=== PATIENT | female | born 1955 | race Caucasian/White ===

== ENCOUNTER 2017-01-15 21:51 | Inpatient (IN) | payer BC, OTHER ==
--- NOTE | 2017-01-15 22:02 | PDOC ---
History of Present Illness - General History Source: Patient Exam Limitations: No Limitations - History of Present Illness Initial Comments: 01/15/17 22:15 The patient is a 61 year old female, with a significant past medical history of Crohn's Disease, kidney stones, psychiatric problems, and frequent UTIs, who presents to the emergency department with, significant edema of the legs, arms, and chest. The patient was rambling and would get distracted easily when giving her symptoms. She reports to have just been discharged from [facility] where she was admitted for a week. She reports to currently have be in significant pain from her kidney stones and UTI. She reports to have taken lasix which helped at the time but, now her legs are once again swollen. She reports to have gotten 4 kidney stones within the past 15 months. She reports recent dysuria, frequency, and urgency. She denies recent fevers, chills, headache or dizziness. She denies recent nausea, vomit, diarrhea or constipation. She denies recent chest pain or shortness of breath. Social history: Former Smoker. Denies EtOH use and recreational drug use. 01/15/17 22:16 <Lauren Garvey - Last Filed: 01/15/17 22:25> <Bipin Tidwell - Last Filed: 01/16/17 00:58> - General Chief Complaint: Edema Stated Complaint: BILAT LEG SWELLING Time Seen by Provider: 01/15/17 22:02 Past History <Lauren Garvey - Last Filed: 01/15/17 22:25> <Bipin Tidwell - Last Filed: 01/16/17 00:58> - Past Medical History Allergies/Adverse Reactions: Allergies Allergy/AdvReac Type Severity Reaction Status Date / Time acetaminophen [From Tylenol] Allergy Verified 01/15/17 22:04 benzocaine [From Exactacain] Allergy Verified 01/15/17 22:05 butamben [From Exactacain] Allergy Verified 01/15/17 22:05 gabapentin Allergy Verified 01/15/17 22:05 heparin Allergy Verified 01/15/17 22:07 ketorolac tromethamine Allergy Verified 01/15/17 22:05 [From Toradol] latex Allergy Verified 01/15/17 22:06 nitrofurantoin Allergy Verified 01/15/17 22:07 [From Macrobid] nitrofurantoin Allergy Verified 01/15/17 22:07 macrocrystalline [From Macrobid] Penicillins Allergy Verified 01/15/17 22:04 prednisone Allergy Verified 01/15/17 22:06 Sulfa (Sulfonamide Allergy Verified 01/15/17 22:05 Antibiotics) tetracaine [From Exactacain] Allergy Verified 01/15/17 22:05 tramadol Allergy Verified 01/15/17 22:04 ANTIHISTAMINES Allergy Uncoded 01/15/17 22:06 IV CONTRAST Allergy Uncoded 01/15/17 22:04 Home Medications: Ambulatory Orders Apixaban [Eliquis] 5 mg PO BID 01/15/17 Review of Systems - Review of Systems Able to Perform ROS?: Yes Comments:: 01/15/17 22:15 GENERAL/CONSTITUTIONAL: No fever or chills. No weakness. HEAD, EYES, EARS, NOSE AND THROAT: No change in vision. No ear pain or discharge. No sore throat. CARDIOVASCULAR: No chest pain or shortness of breath. RESPIRATORY: No cough, wheezing, or hemoptysis. GASTROINTESTINAL: No nausea, vomiting, diarrhea or constipation. GENITOURINARY: +dysuria, frequency, and change in urination. +Flank pain. MUSCULOSKELETAL:+Edema in legs, arms, and chest. No joint swelling or pain. No neck or back pain. SKIN: No rash NEUROLOGIC: No headache, vertigo, loss of consciousness, or change in strength/ sensation. ENDOCRINE: No increased thirst. No abnormal weight change. HEMATOLOGIC/LYMPHATIC: No anemia, easy bleeding, or history of blood clots. ALLERGIC/IMMUNOLOGIC: No hives or skin allergy. All Other Systems: Reviewed and Negative <Lauren Garvey - Last Filed: 01/15/17 22:25> *Physical Exam - Vital Signs Last Vital Signs Temp Pulse Resp BP Pulse Ox 98 F 90 14 118/89 95 01/15/17 21:53 01/15/17 21:53 01/15/17 21:53 01/15/17 21:53 01/15/17 21:53 - Physical Exam Comments: 01/15/17 22:25 GENERAL: Awake, alert, and fully oriented, in no acute distress HEAD: No signs of trauma EYES: PERRLA, EOMI, sclera anicteric, conjunctiva clear ENT: Auricles normal inspection, hearing grossly normal, nares patent, oropharynx clear without exudates. Moist mucosa NECK: Normal ROM, supple, no lymphadenopathy, JVD, or masses LUNGS: Breath sounds equal, clear to auscultation bilaterally. No wheezes, and no crackles HEART: Regular rate and rhythm, normal S1 and S2, no murmurs, rubs or gallops ABDOMEN: Soft, nontender, normoactive bowel sounds. No guarding, no rebound. No masses EXTREMITIES: +Edema bilateral legs. Normal range of motion. No clubbing or cyanosis. No cords, erythema, or tenderness NEUROLOGICAL: Cranial nerves II through XII grossly intact. Normal speech, normal gait SKIN: Warm, Dry, normal turgor, no rashes or lesions noted. <Lauren Garvey - Last Filed: 01/15/17 22:25> ED Treatment Course - LABORATORY CBC & Chemistry Diagram: 01/15/17 22:45 01/15/17 22:45 <Bipin Tidwell - Last Filed: 01/16/17 00:58> *DC/Admit/Observation/Transfer - Attestations Scribe Attestion: 01/15/17 22:15 Documentation prepared by Lauren Garvey, acting as medical assistant float for Bipin Tidwell MD. <Lauren Garvey - Last Filed: 01/15/17 22:25> - Discharge Dispostion Admit: Yes - Attestations Physician Attestion: 01/15/17 22:02 I, Dr. Bipin Tidwell, attest that this document has been prepared under my direction and personally reviewed by me in its entirety. I further attest, that it accurately reflects all work, treatment, procedures and medical decision -making performed by me. <Bipin Tidwell - Last Filed: 01/16/17 00:58> Diagnosis at time of Disposition: Flank pain, Kidney stone UTI (urinary tract infection) Qualifiers: Urinary tract infection type: site unspecified Hematuria presence: with hematuria Qualified Code(s): N39.0 - Urinary tract infection, site not specified ; R31.9 - Hematuria, unspecified; R31.9 - Hematuria, unspecified - Discharge Dispostion Condition at time of disposition: Good
[2017-01-15 22:04] VITALS: TEMP 98
[2017-01-15 22:54] LABS: PH,URINE 5.5 (4.5-8); URINE APPEARANCE Cloudy; URINE BILIRUBIN 1+ (NEGATIVE); URINE GLUCOSE (UA) Negative (NEGATIVE); URINE KETONE Negative (NEGATIVE); URINE NITRITE Negative (NEGATIVE); URINE PROTEIN Trace (NEGATIVE); URINE UROBILINOGEN 0.2 (0.2-1.0)
[2017-01-15 22:55] LABS: URINE BLOOD 3+ (NEGATIVE); URINE COLOR YELLOW; URINE LEUK ESTERASE 1+ (NEGATIVE)
[2017-01-15 23:07] LABS: URINE RBC 20-40 /hpf (0-3)
[2017-01-15 23:08] LABS: URINE BACTERIA MANY /hpf (NEGATIVE); URINE WBC MANY (0-5)
[2017-01-15 23:14] LABS: ALK PHOS 101 U/L (32-92); ANION GAP 10 (8-16); BILIRUBIN,TOTAL 0.5 mg/dl (0.2-1.0); CALCIUM 8.9 mg/dl (8.4-10.2); CO2 26 mmol/L (22-28); CREATININE 0.6 mg/dl (0.6-1.3); GLUCOSE,RANDOM 97 mg/dl (74-106); SGOT/AST 56 U/L (10-42); SGPT/ALT 47 U/L (10-40); TOT PROT 7.2 g/dl (6.4-8.3)
[2017-01-16] MEDS ORDERED: MEROPENEM 1,000 MG in DEXTROSE 5%-WATER - 100 ML IVPB ONE (00:47)
[2017-01-16] MEDS ORDERED: morphine CARPU-JECT 2 MG/1 ML DISP.SYRIN IVPUSH ONE (00:56)
[2017-01-16] MEDS ORDERED: ONDANSETRON 4 MG/2 ML VIAL ONE (00:57)
[2017-01-16] MEDS ORDERED: SODIUM CHLORIDE 1,000 ML IV SCH (01:00)
[2017-01-16] MEDS ORDERED: morphine CARPU-JECT 2 MG/1 ML DISP.SYRIN ONE (01:08)
[2017-01-16 01:29] LABS: BASOPHIL 0.7 % (0-2.0); EOSINOPHIL 2.5 % (0-4.5); MCH 25.5 pg (25.7-33.7); MCHC 32.7 g/dl (32.0-36.0); MEAN CELL VOLUME 77.9 fl (80-96); MEAN PLT VOLUME 9.6 fl (7.5-11.1); NEUTROPHILS 67.4 % (42.8-82.8); PLATELET COUNT 191 K/MM3 (134-434); RDW 22.2 % (11.6-15.6); WHITE BLOOD COUNT 5.5 K/mm3 (4.0-10.0)
[2017-01-16] MEDS ORDERED: morphine SULFATE 4 MG/ML VIAL IVPUSH PRN ×3 (01:52→11:29)
[2017-01-16 01:53] LABS: PROTHROMBIN TIME (PATIENT) 11.3 SEC (9.98-11.88)
[2017-01-16 03:53] LABS: ANISOCYTOSIS 2+; HYPOCHROMIA 1+; MICROCYTOSIS 1+; POIKILOCYTOSIS 1+; POLYCHROMASIA 1+
[2017-01-16 05:45] VITALS: BMI 31.9
[2017-01-16 07:19] VITALS: BP 110/70; PULSE 110
--- NOTE | 2017-01-16 08:52 | PN ---
Progress Note (short form) - Note Progress Note: ID Consult dictated
[2017-01-16] MEDS ORDERED: ONDANSETRON 4 MG/2 ML VIAL IVPB ONE (09:15)
[2017-01-16] MEDS ORDERED: MEROPENEM 500 MG VIAL (RESTRICTED TO ID) IVPB SCH (10:00)
--- NOTE | 2017-01-16 10:52 | HP ---
CHIEF COMPLAINT: Back pain and lower extremity PCP: none HISTORY OF PRESENT ILLNESS: This is a 61 year old female with PMHx of Crohn's disease, kidney stones, frequent UTIs, DVTs and PEs (Dx 2 years ago, on Eliquis), who presented to the ED with edema in her arms, legs, chest, and abdomen. The patient is very combative, she refuses to elaborate on her symptoms and states "I know my health ". She states she was recently at [facility] and signed out AMA because she was not "getting any answers". The patient now reports having pain in her back from kidney stones and her UTI. She easily gets distracted and goes from one symptom to another. She is unable to provide me with further details about her Eliquis and why she has been on it for 2 years, pharmacy information, or who prescribes it to her. She is getting agitated stating "I get it from the hospital". ER course was notable for: (1) BNP 48.68 (2) UA with 1+ leuks, many WBC, many bacteria, 3+ blood (3) Temp 98, pulse 90, BP 118/89, resp 14, O2 95% on RA (4) CTAP with bilateral non-obstructing renal stones. Approximately 7mm fatty density in the right renal upper pole suggestive of an angiomyolipoma. 7.5x6.5mm calcific density/stone Recent Travel: refusing to say PAST MEDICAL HISTORY: as above PAST SURGICAL HISTORY: denies Social History: Smoking: denies Alcohol: denies Drugs: denies Family History: Allergies acetaminophen [From Tylenol] Allergy (Verified 01/15/17 22:04) benzocaine [From Exactacain] Allergy (Verified 01/15/17 22:05) butamben [From Exactacain] Allergy (Verified 01/15/17 22:05) gabapentin Allergy (Verified 01/15/17 22:05) heparin Allergy (Verified 01/15/17 22:07) ketorolac tromethamine [From Toradol] Allergy (Verified 01/15/17 22:05) latex Allergy (Verified 01/15/17 22:06) nitrofurantoin [From Macrobid] Allergy (Verified 01/15/17 22:07) nitrofurantoin macrocrystalline [From Macrobid] Allergy (Verified 01/15/17 22:07 ) Penicillins Allergy (Verified 01/15/17 22:04) prednisone Allergy (Verified 01/15/17 22:06) Sulfa (Sulfonamide Antibiotics) Allergy (Verified 01/15/17 22:05) tetracaine [From Exactacain] Allergy (Verified 01/15/17 22:05) tramadol Allergy (Verified 01/15/17 22:04) ANTIHISTAMINES Allergy (Uncoded 01/15/17 22:06) IV CONTRAST Allergy (Uncoded 01/15/17 22:04) HOME MEDICATIONS: Home Medications Medication Instructions Recorded Apixaban [Eliquis] 5 mg PO BID 01/15/17 REVIEW OF SYSTEMS CONSTITUTIONAL: Absent: fever, chills, diaphoresis, generalized weakness, malaise, loss of appetite, weight change HEENT: Absent: rhinorrhea, nasal congestion, throat pain, throat swelling, difficulty swallowing, mouth swelling, ear pain, eye pain, visual changes CARDIOVASCULAR: Absent: chest pain, syncope, palpitations, irregular heart rate , lightheadedness, peripheral edema RESPIRATORY: Absent: cough, shortness of breath, dyspnea with exertion, orthopnea, wheezing, stridor, hemoptysis GASTROINTESTINAL:Absent: abdominal pain, abdominal distension, nausea, vomiting , diarrhea, constipation, melena, hematochezia GENITOURINARY: Absent: dysuria, frequency, urgency, hesitancy, hematuria, flank pain, genital pain MUSCULOSKELETAL: Absent: myalgia, arthralgia, joint swelling, back pain, neck pain SKIN: Absent: rash, itching, pallor HEMATOLOGIC/IMMUNOLOGIC: Absent: easy bleeding, easy bruising, lymphadenopathy, frequent infections ENDOCRINE:Absent: unexplained weight gain, unexplained weight loss, heat intolerance, cold intolerance NEUROLOGIC: Absent: headache, focal weakness or paresthesias, dizziness, unsteady gait, seizure, mental status changes, bladder or bowel incontinence PSYCHIATRIC: Absent: anxiety, depression, suicidal or homicidal ideation, hallucinations. PHYSICAL EXAMINATION Vital Signs - 24 hr 01/15/17 01/16/17 01/16/17 21:53 02:51 04:55 Temperature 98 F Pulse Rate 90 Pulse Rate [ 84 Left Radial] Respiratory 14 14 Rate Blood Pressure 118/89 Blood Pressure 102/59 [Right Arm] O2 Sat by Pulse 95 94 L 98 Oximetry (%) 01/16/17 07:14 Temperature Pulse Rate 110 H Pulse Rate [ Left Radial] Respiratory 14 Rate Blood Pressure 110/70 Blood Pressure [Right Arm] O2 Sat by Pulse Oximetry (%) GENERAL: Awake, alert, and fully oriented, in no acute distress. LUNGS: Breath sounds equal, clear to auscultation bilaterally. No wheezes, and no crackles. No accessory muscle use. HEART: Regular rate and rhythm, normal S1 and S2 without murmur, rub or gallop. ABDOMEN: Refused abdominal exam MUSCULOSKELETAL: Refused exam UPPER EXTREMITIES: Visible edema, patient refused palpation LOWER EXTREMITIES: Visible edema, patient refused palpation NEUROLOGICAL: Cranial nerves II-XII intact. Normal speech. Gait not observed PSYCHIATRIC: Cooperative. Good eye contact. SKIN: Warm, dry, no rashes or lesions noted, normal capillary refill. Laboratory Results - last 24 hr 01/15/17 01/15/17 01/15/17 22:45 22:45 22:45 WBC Cancelled Corrected WBC (auto) Cancelled RBC Cancelled Hgb Cancelled Hct Cancelled MCV Cancelled MCH Cancelled MCHC Cancelled RDW Cancelled Plt Count Cancelled MPV Cancelled Add Manual Diff Cancelled Neutrophils % Cancelled Lymphocytes % Cancelled Monocytes % Cancelled Eosinophils % Cancelled Basophils % Cancelled Hypochromia Platelet Comment Cancelled Normal RBC Morphology Cancelled Polychromasia Poikilocytosis Anisocytosis Microcytosis PT with INR INR Sodium 138 Potassium 3.9 Chloride 102 Carbon Dioxide 26 Anion Gap 10 BUN 19 H Creatinine 0.6 Creat Clearance w eGFR > 60 Random Glucose 97 Calcium 8.9 Total Bilirubin 0.5 AST 56 H ALT 47 H Alkaline Phosphatase 101 H B-Natriuretic Peptide Total Protein 7.2 Albumin 4.0 Lipase 15 L TSH Cancelled Urine Color Yellow Urine Appearance Cloudy Urine pH 5.5 Ur Specific [place] 1.020 Urine Protein Trace Urine Glucose (UA) Negative Urine Ketones Negative Urine Blood 3+ H Urine Nitrite Negative Urine Bilirubin 1+ H Urine Urobilinogen 0.2 Ur Leukocyte Esterase 1+ H Urine RBC 20-40 Urine WBC Many Ur Epithelial Cells Moderate Urine Bacteria Many 01/16/17 01/16/17 01/16/17 00:22 00:22 00:22 WBC 5.5 Corrected WBC (auto) RBC 4.33 Hgb 11.0 Hct 33.7 MCV 77.9 L MCH 25.5 L MCHC 32.7 RDW 22.2 H Plt Count 191 MPV 9.6 Add Manual Diff Neutrophils % 67.4 Lymphocytes % 21.0 Monocytes % 8.4 Eosinophils % 2.5 Basophils % 0.7 Hypochromia 1+ Platelet Comment Normal RBC Morphology Polychromasia 1+ Poikilocytosis 1+ Anisocytosis 2+ Microcytosis 1+ PT with INR 11.30 INR 1.00 Sodium Potassium Chloride Carbon Dioxide Anion Gap BUN Creatinine Creat Clearance w eGFR Random Glucose Calcium Total Bilirubin AST ALT Alkaline Phosphatase B-Natriuretic Peptide 48.68 Total Protein Albumin Lipase TSH Urine Color Urine Appearance Urine pH Ur Specific [place] Urine Protein Urine Glucose (UA) Urine Ketones Urine Blood Urine Nitrite Urine Bilirubin Urine Urobilinogen Ur Leukocyte Esterase Urine RBC Urine WBC Ur Epithelial Cells Urine Bacteria Assessment: This is a 61 year old female with PMHx of Crohn's disease, kidney stones, frequent UTIs, DVTs and PEs (Dx 2 years ago, on Eliquis), who presented to the ED with edema in her arms, legs, chest, and abdomen with back pain from kidney stones. Plan: 1) B/l non-obstructing renal stones with minila left ureter dilatation - Patient was NPO for possible urological procedure, however she is insisting on eating stating "I wouldn't agree to any procedure anyway" - Patient is refusing to strain all urine stating "it is annoying". She states she has kidney stones all the time and she knows when she will pass it. Instructed patient it is important to know the composition of the stone (she reports she has never caught one in the past), she is still denying straining her urine - Patient is refusing IV fluids stating it flares her Crohn's disease - Morphine prn pain - F/u urology consult 2) UTI - Continue Meropenem - Awaiting urine culture 3) Hx of PEs and DVTs - Patient states she is on Eliquis for hx of PE and DVTs 2 years ago and 02/2016 - Patient will not provide details on prescribing physician or pharmacy where she gets Eliquis and becomes combative when told we need to verify Rx - Patient has own meds at bedside and is refusing to give RN bottle of Eliquis. RN states bottle does not have Rx label, it just says Eliquis. There is a high concern the patient will take her own medication - Will hold off on adding Eliquis now until we are able to verify medication in the patient's own bottle 4) Anasarca - Unknown origin - BNP wnl - Albumin 4 - Patient is refusing cardiac workup stating "my heart is perfect, I don't need any tests" - Outpatient sleep study - Patient reports taking Lasix at home, will hold off on starting as it can increase concentration of Calcium in urine - Consider adding Chlorithaladone or Hctz once evaluated by urology 5) F/E/N: - Regular diet - Monitor electrolytes 6) Prophylaxis: - OOB ambulating - Patient has allergy to heparin - Will restart Eliquis as soon as patient's own medication is removed from her possession as there is high concern she will take her own medication in addition to hospital medication 7) Dispo: - Requires continued inpatient care CODE STATUS: FULL CODE Visit type - Emergency Visit Emergency Visit: Yes ED Registration Date: 01/16/17 Care time: The patient presented to the Emergency Department on the above date and was hospitalized for further evaluation of their emergent condition. - New Patient This patient is new to me today: Yes Date on this admission: 01/16/17 - Critical Care Critical Care patient: No
--- NOTE | 2017-01-16 13:27 | EKG ---
Test Reason : Blood Pressure : / mmHG Vent. Rate : 094 BPM Atrial Rate : 094 BPM P-R Int : 142 ms QRS Dur : 080 ms QT Int : 400 ms P-R-T Axes : 061 051 073 degrees QTc Int : 500 ms NORMAL SINUS RHYTHM POSSIBLE LEFT ATRIAL ENLARGEMENT PROLONGED QT ABNORMAL ECG NO PREVIOUS ECGS AVAILABLE Confirmed by DOC VALENTIN MD ([id number] on 01/16/2017 1:27:22 PM Referred By: MD BUCHANAN Confirmed By:DOC VALENTIN MD
--- NOTE | 2017-01-16 14:48 | CONS ---
INFECTIOUS DISEASE CONSULTATION DATE OF CONSULTATION: 01/16/2017 HISTORY OF PRESENT ILLNESS: The patient is a 61-year-old female with a history of nephrolithiasis and recurrent urinary tract infections, evaluated for urinary tract infection. The patient was hospitalized at [facility] for 1 week with complaints of urinary frequency, dysuria, and urgency. She reports being diagnosed with a urinary tract infection at that time and nephrolithiasis. She was seen in consultation by Urology, and a cystoscopy with left ureteral stent was planned. She left [facility] possibly against medical advice and presented to [facility] with a similar complaint. At the present time, she complains of left flank pain. She has had continued dysuria, urgency, and frequency. She reports having resistant urinary pathogens isolated and was being treated with meropenem. She has a history of PENICILLIN ALLERGY. However, she has tolerated meropenem in the past. She denies any associated fever or chills. A CAT scan done at [facility] shows bilateral non-obstructing stones. There also appears to be a possible obstruction at the left UV junction with left ureteral fullness. PAST MEDICAL HISTORY: Positive for nephrolithiasis, recurrent urinary tract infections, Crohn disease. ALLERGIES: TO MULTIPLE AGENTS INCLUDING PENICILLIN, NITROFURANTOIN, SULFA, TYLENOL, NEURONTIN, HEPARIN, TORADOL. With respect to the PENICILLIN ALLERGY, she reports anaphylaxis but again, has tolerated meropenem in the past. MEDICATIONS: Eliquis. SOCIAL HISTORY: Former smoker. LABORATORY DATA: White count 5.5, hematocrit 33.7, platelet count 191. BUN 19, creatinine 0.6. Urinalysis: Many white cells. Urine culture pending. Total bilirubin 0.5, alkaline phosphatase 101, AST 56, ALT 47. PHYSICAL EXAMINATION: General: She is awake and alert. She is ambulatory, not acutely toxic appearing. Vital Signs: Temperature 98; blood pressure 110/70; pulse 110, regular; respirations 18 per minute. HEENT: Sclerae are anicteric. Heart: Sounds S1, S2. Lungs: Clear. Abdomen: Soft. There is left CVA tenderness to palpation. Extremities: Positive for edema. IMPRESSION: 1. Recurrent/persistent urinary tract infection. 2. Nephrolithiasis. 3. History of MULTIPLE ANTIBIOTIC ALLERGIES. RECOMMENDATIONS: Will obtain blood cultures. Await urine culture. Continue meropenem 500 mg IV piggyback every 8 hours. Urology evaluation. Obtain [facility] records with respect to recent culture results and clinical course. Thank you for the kind referral. VANESSA URBANO M.D. [id number]
[2017-01-16] MEDS ORDERED: oxyCODONE HCL 5 MG TABLET PO PRN (14:53)
[2017-01-16] MEDS ORDERED: morphine CARPU-JECT 2 MG/1 ML DISP.SYRIN IM ONE (15:00)
[2017-01-16] MEDS ORDERED: morphine CARPU-JECT 2 MG/1 ML DISP.SYRIN IM PRN (15:00)
--- NOTE | 2017-01-16 15:42 | DS ---
Physical Examination Vital Signs: Vital Signs Temperature 98 F 01/15/17 21:53 Pulse Rate 110 H 01/16/17 07:14 Respiratory Rate 14 01/16/17 07:14 Blood Pressure 110/70 01/16/17 07:14 O2 Sat by Pulse Oximetry (%) 98 01/16/17 09:00 Labs: CBC, BMP 01/16/17 00:22 01/15/17 22:45 Discharge Summary Reason For Visit: UTI/FLAK PAIN/CALCULUS OF KIDNEY. Current Active Problems Flank pain (Acute) Kidney stone (Acute) UTI (urinary tract infection) (Acute) Hospital Course: Patient eloped - Instructions Disposition: ELOPED - Home Medications Comprehensive Discharge Medication List: Ambulatory Orders Apixaban [Eliquis] 5 mg PO BID 01/15/17
== END 2017-01-16 15:18 | disposition left against medical advice (07) | DRG 468 ==
LOC: FER 21:51 → FM/S 01-16 02:51
PROVIDERS: ADMIT Internal Medicine; ATTEND Registered Nurse
DX: N13.9 Obstructive and reflux uropathy, unspecified (principal); N39.0 Urinary tract infection, site not specified; N20.0 Calculus of kidney; L03.116 Cellulitis of left lower limb; L03.115 Cellulitis of right lower limb; K50.90 Crohn's disease, unspecified, without complications
CPT/HCPCS: 36415; 71010-TC; 74176; 80053; 81003; 81015; 83690; 83880; 85025; 85610; 87086; 87186; 93005; 93970-TC; 99283-25

== ENCOUNTER 2017-01-16 22:46 | Inpatient (IN) | payer BC, OTHER ==
[2017-01-16 22:53] VITALS: BMI 24.7
--- NOTE | 2017-01-16 23:02 | PDOC ---
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 Patient states she was seen at the [facility] on January 15 she was diagnosed with kidney stone and UTI. She was admitted for IV antibiotics. Patient states that she was admitted to the hospital however she did not feel like her pain was being treated so she left this afternoon. Pt. states that she was also seen at [facility] for the same issue and was scheduled for cystoscopy; however, she did not feel comfortable with the surgeon who would be performing the procedure and left AMA. Patient states that she return to the emergency department because she knows that she still needs treatment for her kidney stones. Admits to back pain, flank pain, full body swelling. Past History - Travel Traveled outside of the country in the last 30 days: No Close contact w/someone who was outside of country & ill: No - Past Medical History Allergies/Adverse Reactions: Allergies Allergy/AdvReac Type Severity Reaction Status Date / Time acetaminophen [From Tylenol] Allergy Verified 01/15/17 22:04 benzocaine [From Exactacain] Allergy Verified 01/15/17 22:05 butamben [From Exactacain] Allergy Verified 01/15/17 22:05 gabapentin Allergy Verified 01/15/17 22:05 heparin Allergy Verified 01/15/17 22:07 ketorolac tromethamine Allergy Verified 01/15/17 22:05 [From Toradol] latex Allergy Verified 01/15/17 22:06 nitrofurantoin Allergy Verified 01/15/17 22:07 [From Macrobid] nitrofurantoin Allergy Verified 01/15/17 22:07 macrocrystalline [From Macrobid] Penicillins Allergy Verified 01/15/17 22:04 prednisone Allergy Verified 01/15/17 22:06 Sulfa (Sulfonamide Allergy Verified 01/15/17 22:05 Antibiotics) tetracaine [From Exactacain] Allergy Verified 01/15/17 22:05 tramadol Allergy Verified 01/15/17 22:04 ANTIHISTAMINES Allergy Uncoded 01/15/17 22:06 IV CONTRAST Allergy Uncoded 01/15/17 22:04 Home Medications: Ambulatory Orders Apixaban [Eliquis] 5 mg PO BID 01/15/17 COPD: No GI Disorders: Yes (CROHNS) Psychiatric Problems: Yes - Suicide/Smoking/Psychosocial Hx Smoking History: Never smoked Have you smoked in the past 12 months: No Number of Cigarettes Smoked Daily: 0 Information on smoking cessation initiated: No Hx Alcohol Use: No Drug/Substance Use Hx: No Substance Use Type: None Review of Systems - Review of Systems Able to Perform ROS?: Yes Comments:: 01/17/17 01:07 CONSTITUTIONAL: Absent: fever, chills, diaphoresis, generalized weakness, malaise, loss of appetite HEENT: Absent: rhinorrhea, nasal congestion, throat pain, throat swelling, difficulty swallowing, mouth swelling, ear pain, eye pain, visual Changes CARDIOVASCULAR: Present: peripheral edema of arms and legs. Absent: chest pain, loss of consciousness, palpitations, irregular heart rate RESPIRATORY: Absent: cough, shortness of breath, dyspnea with exertion, orthopnea, wheezing, stridor, hemoptysis GASTROINTESTINAL: Absent: abdominal pain, abdominal distension, nausea, vomiting, diarrhea, constipation, melena, hematochezia GENITOURINARY: Present: dysuria, frequency, urgency, CVA tenderness b/l. Absent: hesitancy, hematuria, flank pain, genital pain MUSCULOSKELETAL: Absent: myalgia, arthralgia, joint swelling SKIN: Absent: rash, itching, pallor HEMATOLOGIC/IMMUNOLOGIC: Absent: easy bleeding, easy bruising, lymphadenopathy, frequent infections ENDOCRINE: Absent: unexplained weight gain, unexplained weight loss, heat intolerance, cold intolerance NEUROLOGIC: Absent: headache, focal weakness or paresthesias, dizziness, unsteady gait, seizure, mental status changes, bladder or bowel incontinence PSYCHIATRIC: Absent: anxiety, depression, suicidal or homicidal ideation, hallucinations. Is the patient limited Swedish proficient: No *Physical Exam - Vital Signs Last Vital Signs Temp Pulse Resp BP Pulse Ox 97.4 F L 96 H 18 156/94 99 01/16/17 22:50 01/16/17 22:50 01/16/17 22:50 01/16/17 22:50 01/16/17 22:50 - Physical Exam Comments: 01/17/17 01:09 GENERAL: Well developed, well nourished. Awake and alert. No acute distress. HEENT: Normocephalic, atraumatic. PERRLA, EOMI. No conjunctival pallor. Sclera are non- icteric. Moist mucous membranes. Oropharynx is clear. NECK: Supple. Full ROM. No JVD. Carotid pulses 2+ and symmetric, without bruits. No thyromegaly. No lymphadenopathy. CARDIOVASCULAR: Regular rate and rhythm. No murmurs, rubs, or gallops. Distal pulses are 2+ and symmetric. PULMONARY: No evidence of respiratory distress. Lungs clear to auscultation bilaterally. No wheezing, rales or rhonchi. ABDOMINAL: Soft. Non-tender. Non-distended. No rebound or guarding. No organomegaly. Normoactive bowel sounds. MUSCULOSKELETAL CVA tenderness b/l. Normal range of motion at all joints. No bony deformities or tenderness. EXTREMITIES: 4+ pitting edema of the lower legs b/l. No cyanosis. No clubbing. No edema. No calf tenderness. SKIN: Warm and dry. Normal capillary refill. No rashes. No jaundice. NEUROLOGICAL: Alert, awake, appropriate. Cranial nerves 2-12 intact. No deficits to light touch and temperature in face, upper extremities and lower extremities. No motor deficits in the in face, upper extremities and lower extremities. Normoreflexic in the upper and lower extremities. Normal speech. Toes are down- going bilaterally. Gait is normal without ataxia. PSYCHIATRIC: Cooperative. Good eye contact. Appropriate mood and affect. ED Treatment Course - LABORATORY CBC & Chemistry Diagram: 01/17/17 06:00 01/17/17 06:10 Medical Decision Making - Medical Decision Making 01/17/17 00:45 Pt. is a 61 y/o F with PMH of DVT/PE on apixaban, who presents to the ED after eloping from the [facility] c/o back pain, and burning on urination. Pt was admitted at [facility] for nephrolithiasis and UTI requiring IV abx. Pt. states that she eloped from [place] d/t lack of "pain control" and that urology had not yet consulted on her. She presents to the ED now for admission, pain control and urology consult. Explained to pt that urology will not be able to see her tonight and may not see her until later tomorrow afternoon. Pt. states that she understands. Labs and ancillary studies reviewed from prior ED visit. CT scan on 01/15/17 which showed. Bilateral nonobstructing renal stones, as described above. Approximate 7 mm fatty density in the right renal upper pole suggestive of an angiomyolipoma. 7.5 x 6.5 mm calcified density/stone at the left UVJ with minimal dilatation of the distal left ureter with minimal fullness of the left renal pelvicalyceal system. Follow-up is needed. Labs were obtained this morning while an inpatient at [facility]. Will treat her pain and nausea at this time (IM morphine and SL zofran). Pt. also has gross 4+ edema to her thighs and she would like treatment for this as well. Will admit pt. to the hospitalist service for continued inpatient care for her stones. Pt. understands and accepts admission at this time. Spoke with Dr. Roy who will accept the pt. *DC/Admit/Observation/Transfer Diagnosis at time of Disposition: Kidney stone UTI (urinary tract infection) Qualifiers: Urinary tract infection type: acute cystitis Hematuria presence: with hematuria Qualified Code(s): N30.01 - Acute cystitis with hematuria - Discharge Dispostion Condition at time of disposition: Stable Admit: Yes - Referrals - Patient Instructions - Post Discharge Activity
[2017-01-17] MEDS ORDERED: ONDANSETRON *ODT* 4 MG TABLET SL ONE (00:23)
[2017-01-17] MEDS ORDERED: morphine CARPU-JECT 2 MG/1 ML DISP.SYRIN IM ONE (00:23)
[2017-01-17 00:28] LABS: URINE APPEARANCE CLOUDY; URINE BILIRUBIN NEGATIVE (NEGATIVE); URINE BLOOD 2+ (NEGATIVE); URINE COLOR AMBER; URINE GLUCOSE (UA) NEGATIVE (NEGATIVE); URINE KETONE NEGATIVE (NEGATIVE); URINE NITRITE NEGATIVE (NEGATIVE)
[2017-01-17] MEDS ORDERED: morphine SULFATE 4 MG/ML VIAL ONE ×2 (00:37→02:39)
[2017-01-17] MEDS ORDERED: ONDANSETRON 4 MG/2 ML VIAL ONE (00:37)
[2017-01-17 00:38] LABS: URINE LEUK ESTERASE 2+ (NEGATIVE); URINE PROTEIN 1+ (NEGATIVE)
[2017-01-17] MEDS ORDERED: ONDANSETRON *ODT* 4 MG TABLET ONE (00:38)
[2017-01-17] MEDS ORDERED: morphine SULFATE 4 MG/ML VIAL IVPUSH PRN ×2 (01:11→10:56)
[2017-01-17 01:13] LABS: URINE BACTERIA FEW /hpf (NONE SEEN); URINE HYALINE CAST 2 /lpf; URINE MUCUS FEW; URINE RBC 56 /hpf (0-3); URINE WBC 40 /hpf (3-5); YEAST RARE
[2017-01-17] MEDS ORDERED: TAMSULOSIN HCL 0.4 MG CAP.ER.24H (FP) PO ONE (01:24)
[2017-01-17] MEDS ORDERED: SODIUM CHLORIDE 1,000 ML IV SCH (01:30)
--- NOTE | 2017-01-17 02:14 | PDOC ---
*Physical Exam - Vital Signs Last Vital Signs Temp Pulse Resp BP Pulse Ox 97.4 F L 96 H 18 156/94 99 01/16/17 22:50 01/16/17 22:50 01/16/17 22:50 01/16/17 22:50 01/16/17 22:50 ED Treatment Course - ADDITIONAL ORDERS Additional order review: Laboratory Results 01/17/17 00:11 Urine Color Ashlee Urine Appearance Cloudy Urine pH 6.0 Ur Specific [place] 1.024 Urine Protein 1+ H Urine Glucose (UA) Negative Urine Ketones Negative Urine Blood 2+ H Urine Nitrite Negative Urine Bilirubin Negative Urine Urobilinogen 2.0 H Urine WBC (Auto) 40 Urine RBC (Auto) 56 Ur Epithelial Cells Rare Urine Bacteria Few Hyaline Casts 2 Urine Mucus Few Urine Yeast Rare - Medications Given in the ED: ED Medications Discontinued Medications Generic Name Dose Route Start Last Admin Trade Name Freq PRN Reason Stop Dose Admin Morphine Sulfate 4 mg 01/17/17 00:23 01/17/17 00:57 Morphine Injection - IM 01/17/17 00:24 4 mg ONCE ONE Administration Ondansetron HCl 4 mg 01/17/17 00:23 01/17/17 00:58 Zofran Odt - SL 01/17/17 00:24 4 mg ONCE ONE Administration Tamsulosin HCl 0.8 mg 01/17/17 01:24 01/17/17 01:43 Flomax - PO 01/17/17 01:25 0.8 mg ONCE ONE Administration *DC/Admit/Observation/Transfer Diagnosis at time of Disposition: Kidney stone, UTI (urinary tract infection) - Discharge Dispostion Condition at time of disposition: Stable Admit: Yes - Referrals - Patient Instructions - Post Discharge Activity
--- NOTE | 2017-01-17 06:24 | HP ---
CHIEF COMPLAINT: abdomianl pain 3 days HISTORY OF PRESENT ILLNESS: Please referer to history and physical from 12/17 Patient eloped from [place] and presented to the ED with same complaint Allergies acetaminophen [From Tylenol] Allergy (Verified 01/15/17 22:04) benzocaine [From Exactacain] Allergy (Verified 01/15/17 22:05) butamben [From Exactacain] Allergy (Verified 01/15/17 22:05) gabapentin Allergy (Verified 01/15/17 22:05) heparin Allergy (Verified 01/15/17 22:07) ketorolac tromethamine [From Toradol] Allergy (Verified 01/15/17 22:05) latex Allergy (Verified 01/15/17 22:06) nitrofurantoin [From Macrobid] Allergy (Verified 01/15/17 22:07) nitrofurantoin macrocrystalline [From Macrobid] Allergy (Verified 01/15/17 22:07 ) Penicillins Allergy (Verified 01/15/17 22:04) prednisone Allergy (Verified 01/15/17 22:06) Sulfa (Sulfonamide Antibiotics) Allergy (Verified 01/15/17 22:05) tetracaine [From Exactacain] Allergy (Verified 01/15/17 22:05) tramadol Allergy (Verified 01/15/17 22:04) ANTIHISTAMINES Allergy (Uncoded 01/15/17 22:06) IV CONTRAST Allergy (Uncoded 01/15/17 22:04) HOME MEDICATIONS: Home Medications Medication Instructions Recorded Apixaban [Eliquis] 5 mg PO BID 01/15/17 PHYSICAL EXAMINATION Vital Signs - 24 hr 01/16/17 22:50 Temperature 97.4 F L Pulse Rate 96 H Respiratory 18 Rate Blood Pressure 156/94 O2 Sat by Pulse 99 Oximetry (%) GENERAL: Awake, alert, and fully oriented, in no acute distress. LUNGS: Breath sounds equal, clear to auscultation bilaterally. No wheezes, and no crackles. No accessory muscle use. HEART: Regular rate and rhythm, normal S1 and S2 without murmur, rub or gallop. ABDOMEN: b/l cva tenderness MUSCULOSKELETAL: Normal range of motion at all joints. No bony deformities or tenderness. No CVA tenderness. UPPER EXTREMITIES: 2+ pulses, warm, well-perfused. No cyanosis. No clubbing. No peripheral edema. LOWER EXTREMITIES: 2+ pulses, warm, well-perfused. No calf tenderness. No peripheral edema. NEUROLOGICAL: Cranial nerves II-XII intact. Normal speech. Normal gait. PSYCHIATRIC: Cooperative. Good eye contact. Appropriate mood and affect. SKIN: Warm, dry, normal turgor, no rashes or lesions noted, normal capillary refill. Laboratory Results - last 24 hr 01/17/17 00:11 Urine Color Ashlee Urine Appearance Cloudy Urine pH 6.0 Ur Specific [place] 1.024 Urine Protein 1+ H Urine Glucose (UA) Negative Urine Ketones Negative Urine Blood 2+ H Urine Nitrite Negative Urine Bilirubin Negative Urine Urobilinogen 2.0 H Urine WBC (Auto) 40 Urine RBC (Auto) 56 Ur Epithelial Cells Rare Urine Bacteria Few Hyaline Casts 2 Urine Mucus Few Urine Yeast Rare ASSESSMENT/PLAN: - IVF -NPO - Pain control - Urology evaluation - hold sakinaquis -josémax Visit type - Emergency Visit Emergency Visit: Yes ED Registration Date: 01/17/17 Care time: The patient presented to the Emergency Department on the above date and was hospitalized for further evaluation of their emergent condition. - New Patient This patient is new to me today: Yes Date on this admission: 01/17/17 - Critical Care Critical Care patient: No
[2017-01-17 06:47] LABS: ANION GAP 3 (8-16); CALCIUM 8.1 mg/dL (8.5-10.1); CO2 32 mmol/L (21-32); CREATININE 0.4 mg/dL (0.55-1.02); GLUCOSE,RANDOM 90 mg/dL (74-106)
[2017-01-17] MEDS ORDERED: morphine SULFATE 4 MG/ML VIAL IM PRN (07:24)
--- NOTE | 2017-01-17 07:49 | HP ---
CHIEF COMPLAINT: Generalized pain PCP: NONE HISTORY OF PRESENT ILLNESS: Patient appears more cooperative now 61yearold female with history of recurrent uti, UA colonization that presents today c/o generalized pain , chronic burning on urination and leg edema. She has been hospitalized in [facility] 2 days ago, diagnosed with obstructing renal stone but was not happy with care and signed out AMA. She was hospitalized in [facility] yesterday but left against medical advice before seeing urologist. Reposts history of UTI, resistant to fluoroquinolones. No fevers Recent Travel: no travel outof the country PAST MEDICAL HISTORY: UTI Chrons Disease SBO CDIFF DVT PE PAST SURGICAL HISTORY: Laparoscopic abdominal surgery Cystoscopy Social History: Smoking: denies Alcohol:denies Drugs: denies Family History: non contributory Allergies acetaminophen [From Tylenol] Allergy (Verified 01/15/17 22:04) benzocaine [From Exactacain] Allergy (Verified 01/15/17 22:05) butamben [From Exactacain] Allergy (Verified 01/15/17 22:05) gabapentin Allergy (Verified 01/15/17 22:05) heparin Allergy (Verified 01/15/17 22:07) ketorolac tromethamine [From Toradol] Allergy (Verified 01/15/17 22:05) latex Allergy (Verified 01/15/17 22:06) nitrofurantoin [From Macrobid] Allergy (Verified 01/15/17 22:07) nitrofurantoin macrocrystalline [From Macrobid] Allergy (Verified 01/15/17 22:07 ) Penicillins Allergy (Verified 01/15/17 22:04) prednisone Allergy (Verified 01/15/17 22:06) Sulfa (Sulfonamide Antibiotics) Allergy (Verified 01/15/17 22:05) tetracaine [From Exactacain] Allergy (Verified 01/15/17 22:05) tramadol Allergy (Verified 01/15/17 22:04) ANTIHISTAMINES Allergy (Uncoded 01/15/17 22:06) IV CONTRAST Allergy (Uncoded 01/15/17 22:04) HOME MEDICATIONS: Home Medications Medication Instructions Recorded Apixaban [Eliquis] 5 mg PO BID 01/15/17 REVIEW OF SYSTEMS all points are negative except from what is mentioned in NPI PHYSICAL EXAMINATION Vital Signs - 24 hr 01/16/17 22:50 Temperature 97.4 F L Pulse Rate 96 H Respiratory 18 Rate Blood Pressure 156/94 O2 Sat by Pulse 99 Oximetry (%) GENERAL: Awake, alert, and fully oriented, in no acute distress, sleeping in bed . Personal belongings ( multiple boxes ) nextto herbed HEAD: Normal with no signs of trauma. EYES: Pupils equal, round and reactive to light, extraocular movements intact, sclera anicteric, conjunctiva clear. No lid lag. EARS, NOSE, THROAT: Ears normal, nares patent, oropharynx clear without exudates. DRY mucous membranes. NECK: Normal range of motion, supple without lymphadenopathy, JVD, or masses. LUNGS: Breath sounds equal, clear to auscultation bilaterally. No wheezes, and no crackles. No accessory muscle use. HEART: Regular rate and rhythm, normal S1 and S2 without murmur, rub or gallop. ABDOMEN: Soft, mildly distended, ventral hernia reducible , no guarding MUSCULOSKELETAL: Normal range of motion at all joints. No bony deformities or tenderness. B/L CVA tenderness however pain appears to be all over herback on palpationi UPPER EXTREMITIES: 2+ pulses, warm, well-perfused. No cyanosis. No clubbing. No peripheral edema. LOWER EXTREMITIES: 2+ pulses, 2 + edema, erythema of b/l lower extremity up to mi dshin NEUROLOGICAL: Cranial nerves II-XII intact. Tangential . Normal gait. PSYCHIATRIC: Cooperative now . Good eye contact. Anxious SKIN: Suspected cellulitis lower extremity. Laboratory Results - last 24 hr 01/17/17 01/17/17 00:11 06:10 Sodium 142 Potassium 3.9 Chloride 107 Carbon Dioxide 32 Anion Gap 3 L BUN 12 Creatinine 0.4 L Random Glucose 90 Calcium 8.1 L Urine Color Ashlee Urine Appearance Cloudy Urine pH 6.0 Ur Specific [place] 1.024 Urine Protein 1+ H Urine Glucose (UA) Negative Urine Ketones Negative Urine Blood 2+ H Urine Nitrite Negative Urine Bilirubin Negative Urine Urobilinogen 2.0 H Urine WBC (Auto) 40 Urine RBC (Auto) 56 Ur Epithelial Cells Rare Urine Bacteria Few Hyaline Casts 2 Urine Mucus Few Urine Yeast Rare CTabdomen from 12/7 - 7x 6 cm renal stone/ obstructing ASSESSMENT/PLAN: 1. Obstructive uropathy - non compliance with recommended medical management. She now refuses to be NPO for procedure she first wants to talk to urologist. She refuses Levaquin because she reports resistant microorganism. She states that her urine cultures always come back contaminated however she rquires IV meropenem and needs to be treated with IV antibiotics and stay in the hospital . She does not recall the name of Urologist who recommended such treatment . - will hold off IV antibiotics and get ID ok for meropenem since patiebntnow refusing lavaquin - UA cultures - needs cystoscopy - flomax PO - pain control appears to be appropriate - refuses NPO 2. Suspected cellulitis of b/l LE - no wound . Has edema thathas been worsening past3 days . No fever. LE edema could be secondary to increased abdominal distention ( constipation? ) and compression of IVC. She reports history of DVT and PE. - vancomycin one dose - demarcate area 3. Historyof DVT/PE- reported by patient - will continue Eliquis if ok with urology and no lithotripsy planned Visit type - Emergency Visit Emergency Visit: Yes ED Registration Date: 01/17/17 Care time: The patient presented to the Emergency Department on the above date and was hospitalized for further evaluation of their emergent condition. - New Patient This patient is new to me today: Yes Date on this admission: 01/17/17 - Critical Care Critical Care patient: No
[2017-01-17] MEDS ORDERED: MEROPENEM 500 MG in DEXTROSE 5%-WATER - 100 ML IVPB ONE ×2 (08:01→09:00)
[2017-01-17] MEDS ORDERED: VANCOMYCIN 1,250 MG in DEXTROSE 5%-WATER - 250 ML IVPB ONE (08:15)
[2017-01-17] MEDS ORDERED: MEROPENEM 500 MG PUSH 500 MG/10 ML DISP.SYRIN IVPB ONE (08:45)
--- NOTE | 2017-01-17 09:51 | PN ---
Progress Note (short form) - Note Progress Note: ID Consult dictated L nephrolithiasis Urology consultation Observe off antibiotics Consider Psych evaluation Re-consult as needed
--- NOTE | 2017-01-17 09:57 | PN ---
Progress Note (short form) - Note Progress Note: 7mm left UVJ stone. no signs of sepsis. patient placed in the OR schedule for later today for ureteroscopy
[2017-01-17] MEDS ORDERED: LEVOFLOXACIN 500 MG TABLET (FP) PO SCH (10:00)
[2017-01-17] MEDS ORDERED: LEVOFLOXACIN 500 MG IVPB 500 MG/100 ML BAG IVPB SCH (10:00)
[2017-01-17] MEDS ORDERED: APIXABAN 5 MG TABLET PO SCH (10:00)
[2017-01-17 10:07] LABS: BASOPHIL 0.5 % (0-2.0); EOSINOPHIL 1.9 % (0-4.5); MCH 24.6 pg (25.7-33.7); MCHC 31.4 g/dl (32.0-36.0); MEAN CELL VOLUME 78.4 fl (80-96); MEAN PLT VOLUME 9.6 fl (7.5-11.1); NEUTROPHILS 62.7 % (42.8-82.8); PLATELET COUNT 177 K/MM3 (134-434); RDW 22.3 % (11.6-15.6); WHITE BLOOD COUNT 3.9 K/mm3 (4.0-10.0)
[2017-01-17 10:22] VITALS: BP 146/90; PULSE 87; TEMP 98.3
[2017-01-17] MEDS ORDERED: oxyCODONE HCL 5 MG TABLET PO PRN (12:09)
--- NOTE | 2017-01-17 14:18 | PN ---
Teaching Attending Note Name of Resident: Gualberto Napoles ATTENDING PHYSICIAN STATEMENT Time of evaluation: 11;36 AM I saw and evaluated the patient. I reviewed the resident's note and discussed the case with the resident. I agree with the resident's findings and plan as documented. SUBJECTIVE: Patient seen and examined, Ambulating comfortably in the hallway, discussing with RN. Noted coming back to her room, sitting on her laptop and working the same. OBJECTIVE: Vital Signs Period Temp Pulse Resp BP Sys/Wood Pulse Ox Last 24 Hr 97.4 F-98.3 F 87-96 18-18 146-156/70-94 99-99 Intake & Output 01/14/17 01/15/17 01/16/17 01/17/17 23:59 23:59 23:59 23:59 Weight 140 lb 176 lb 8 oz General: ambulating in hallway with no concerns, later noted sitting at the edge of the bed with laptop open on the table Chest: CTAB, no rales or wheezing abdomen; soft, NT, ventral hernia reducible, Back:b/l CVA tenderness though more generalized pain on palpation, better exam when distracted Extremities: 2+ pitting edema with venous stasis, non warm non tender Home Medication List Medication Instructions Recorded Confirmed Type Apixaban [Eliquis] 5 mg PO BID 01/15/17 01/16/17 History Active Medications Generic Name Dose Route Start Last Admin Trade Name Freq PRN Reason Stop Dose Admin Sodium Chloride 1,000 mls @ 75 mls/hr 01/17/17 01:30 01/17/17 01:43 Normal Saline - IV 75 mls/hr ASDIR GAYLE Administration Laboratory Results - last 24 hr 01/17/17 01/17/17 01/17/17 00:11 06:00 06:10 WBC 3.9 L RBC 4.20 Hgb 10.4 L Hct 33.0 MCV 78.4 L MCH 24.6 L MCHC 31.4 L RDW 22.3 H Plt Count 177 MPV 9.6 Neutrophils % 62.7 Lymphocytes % 25.3 D Monocytes % 9.6 Eosinophils % 1.9 Basophils % 0.5 Sodium 142 Potassium 3.9 Chloride 107 Carbon Dioxide 32 Anion Gap 3 L BUN 12 Creatinine 0.4 L Random Glucose 90 Calcium 8.1 L Urine Color Ashlee Urine Appearance Cloudy Urine pH 6.0 Ur Specific [place] 1.024 Urine Protein 1+ H Urine Glucose (UA) Negative Urine Ketones Negative Urine Blood 2+ H Urine Nitrite Negative Urine Bilirubin Negative Urine Urobilinogen 2.0 H Urine WBC (Auto) 40 Urine RBC (Auto) 56 Ur Epithelial Cells Rare Urine Bacteria Few Hyaline Casts 2 Urine Mucus Few Urine Yeast Rare CT A/P from 01/16 reviewed. ASSESSMENT AND PLAN: -UTI vs urinary contamination -Obstructive uropathy with nephrolithiasis Plan: ID input appreciated. No indication for antibiotics. Afebrile, no leucocyotosis or sepsis. Clinical exam non concerning. recommend no indication for antibiotics but follow up with urology to address treatment for her obstructive uropathy and return if new fevers, chills, abdominal or back pain or new urinary symptoms noted. No concerns for cellulitis currently Initially was offered OR if able to schedule today for ureteroscopy but patient declined going for intervention today given personal concerns. Discussed with urology Dr. Sherwood, recommend outpatient follow up next week to address further intervention but no sepsis, renal dysfunction or concerning symptoms to warrant emergent or urgent intervention and ok for d/c with outpatient follow up next week per him. Patient has been ambulating comfortably in the hallway, working on her laptop in the room with no hypertension or tachycardia to warrant narcotics for pain control at this point. Will hold off for now. Continue eliquis as reported by patient as being on it. D/c home with outpatient urology follow up and education on warning symptoms to seek care if any new fevers, chills, worsening pain, urinary symptoms or new concerns noted.
--- NOTE | 2017-01-17 14:22 | DS ---
Physical Exam: SUBJECTIVE: Patient seen and examined at bedside. Patient voiced displeasure with her hospital stay and states that she refused her procedure with Dr. Dunn today. Denies chest pain, SOB, nausea, vomiting. OBJECTIVE: Vital Signs Period Temp Pulse Resp BP Sys/Wood Pulse Ox Last 24 Hr 97.4 F-98.3 F 87-96 18-18 146-156/70-94 99-99 PHYSICAL EXAM GENERAL: The patient is awake, alert, and fully oriented, in no acute distress. Patient seems preoccupied with her laptop during exam. LUNGS: Breath sounds equal, clear to auscultation bilaterally, no wheezes, no crackles, no accessory muscle use. HEART: Regular rate and rhythm, S1, S2 without murmur, rub or gallop. EXTREMITIES: 2+ pulses, warm, well-perfused, b/l lower extemity edema noted on exam PSYCH: Patient appears very agitated SKIN: Warm, dry, normal turgor, no rashes or lesions noted. LABS Laboratory Results - last 24 hr 01/17/17 01/17/17 01/17/17 00:11 06:00 06:10 WBC 3.9 L RBC 4.20 Hgb 10.4 L Hct 33.0 MCV 78.4 L MCH 24.6 L MCHC 31.4 L RDW 22.3 H Plt Count 177 MPV 9.6 Neutrophils % 62.7 Lymphocytes % 25.3 D Monocytes % 9.6 Eosinophils % 1.9 Basophils % 0.5 Sodium 142 Potassium 3.9 Chloride 107 Carbon Dioxide 32 Anion Gap 3 L BUN 12 Creatinine 0.4 L Random Glucose 90 Calcium 8.1 L Urine Color Ashlee Urine Appearance Cloudy Urine pH 6.0 Ur Specific [place] 1.024 Urine Protein 1+ H Urine Glucose (UA) Negative Urine Ketones Negative Urine Blood 2+ H Urine Nitrite Negative Urine Bilirubin Negative Urine Urobilinogen 2.0 H Urine WBC (Auto) 40 Urine RBC (Auto) 56 Ur Epithelial Cells Rare Urine Bacteria Few Hyaline Casts 2 Urine Mucus Few Urine Yeast Rare HOSPITAL COURSE: Date of Admission:01/17/17 61 year old female with a past medical history of crohn's disease and recurrent UTI resistant to fluoroquinolones presented to the hospital with generalized pain, chronic burning on urination and generalized edema. Patient was seen at [facility] 2 days ago, where she was diagnosed with obstructing renal stones, but she left against medical advice before she was given any treatment. Patient arrived to [facility] yesterday with the same complaint, but she again signed out AMA before being seen by urology for her obstruction. In our care, patient received a dose of meropenem in the emergency department and was transferred to the floors for management. Dr. Dunn was consulted, who agreed to schedule an operating room for a stent placement in order to alleviate the obstruction. Patient refused the procedure. Patient was counseled on the importance of the procedure, and she refused again when talked to by the primary team. Patient was seen by infectious disease, who recommended not treating the patient with antibiotics. Patient did not have any fevers, leukocytosis, or renal dysfunction during her stay and was noted to be ambulating comfortably in the hallway with no concerns or pain. Urology was contacted, who recommended patient follow up for stent placement as an outpatient, as it did not appear to be an emergent necessity. Patient was informed of the decisions, she agreed with the plan for outpatient therapy, but she stated that she did not want to follow with our physicians and will find her own elsewhere. Patient was discharged on 01/17/17 with instructions to make an appointment with her urologist on Friday. Date of Discharge: 01/17/17 Minutes to complete discharge: 30 Discharge Summary Reason For Visit: UTI CALCULUS OF KIDNEY Current Active Problems Kidney stone (Acute) UTI (urinary tract infection) (Acute) Condition: Stable - Instructions Diet, Activity, Other Instructions: You were admitted to the hospital for the treatment of urinary tract infection. You were given antibiotics in the emergency room when you were first admitted. Medical Recommendations: 1. Continue taking Eliquis as directed at home. 2. You were seen by infectious disease specialist and Based on infectious disease recommendations, you do not need to take antibiotics at home for your urinary symptoms, but it is important that you follow up with a urologist regarding your kidney stone. 3. Please make an appointment to see the urologist, Dr. Dunn on Friday to discuss managing your symptoms and potential for a ureteral stent procedure as an outpatient. 4. Please make an appointment to see your primary care physician within 1 week of discharge. If you experience fevers, chills, nausea, vomiting, diarrhea, belly pain, or new concerns call your doctor or return to the emergency room immediately. Referrals: Agustín Dunn MD [Staff Physician] - Disposition: HOME - Home Medications Comprehensive Discharge Medication List: Ambulatory Orders Apixaban [Eliquis] 5 mg PO BID 01/15/17 This patient is new to me today: Yes Date on this admission: 01/17/17 Emergency Visit: No Critical Care patient: No - Discharge Referral Referred to [facility] No
[2017-01-17 14:59] LABS: URINE LEUK ESTERASE 1+ (NEGATIVE)
--- NOTE | 2017-01-17 16:33 | CONS ---
DATE OF CONSULTATION: DATE OF DICTATION: 01/17/2017 INFECTIOUS DISEASE CONSULTATION HISTORY OF PRESENT ILLNESS: The patient is a 61-year-old female who was evaluated for urinary tract infection. She was hospitalized at [facility] for 1 week with complaints of urinary frequency, dysuria, and urgency. She reports being diagnosed with urinary tract infection and nephrolithiasis. She left [facility] against medical advice after being seen by urology. She was advised a cystoscopy and left ureteral stent. She complained of dysuria, urgency, and frequency. She was empirically treated with meropenem. Additional details of her [facility] admission are not available, nor are cultures. She left against medical advice. She presented to [facility] where she refused IV fluid hydration, blood cultures, and was combative and argumentative. She left against medical advice, and now is admitted to [facility]. She reports having history of resistant urinary tract pathogens in the past, however no culture results are available. She has a history of PENICILLIN allergy, however has tolerated meropenem in the past. She denies any fever or chills. PAST MEDICAL HISTORY: Positive for nephrolithiasis, recurrent urinary tract infections, Crohn disease. ALLERGIES: Multiple agents including PENICILLIN, NITROFURANTOIN, SULFA, TYLENOL, NEURONTIN, HEPARIN, TORADOL. She reports history of anaphylaxis to penicillin; however, has tolerated meropenem in the past. SOCIAL HISTORY: Former smoker. LABORATORY DATA: White count 5.5. Urinalysis 40 white cells. Patient refused blood cultures. PHYSICAL EXAMINATION: General: She is awake and alert. She is not acutely toxic appearing. She is working on her laptop seated in bed. Vital signs: Temperature 97.8, blood pressure 148/70, pulse 88 regular, respirations 18 per minute. HEENT: Sclerae anicteric. Cardiovascular: Heart sounds S1, S2. Respiratory: Lungs clear. Abdomen: Soft. Mild left CVA tenderness. Extremities: Positive for edema. IMPRESSION: 1. Left nephrolithiasis. 2. History of recurrent urinary tract infections. 3. Multiple antibiotic allergies. Advised urology evaluation. Patient is not clinically toxic appearing without evidence of systemic infection. Would observe off antibiotic therapy, obtain records from [facility], would consider psychiatry evaluation in light of her recent AMA departures from 2 hospitals within the past 2 weeks. Patient is refusing IV fluids, blood cultures, and other nursing interventions. Please reconsult as needed. Thank you for the kind referral. VANESSA URBANO M.D. [id number]
== END 2017-01-17 18:21 | disposition home or self-care (01) | DRG 465 ==
LOC: JER 22:46 → JERBED 01-17 02:14 → UNDOADMIN 01-17 02:22 → JERBED 01-17 02:22 → J8W 01-17 09:29
PROVIDERS: ADMIT Internal Medicine; ATTEND Hospitalist
DX: N13.8 Other obstructive and reflux uropathy (principal); N39.0 Urinary tract infection, site not specified; N20.0 Calculus of kidney; L03.115 Cellulitis of right lower limb; L03.116 Cellulitis of left lower limb
CPT/HCPCS: 36415; 80048; 81003; 81015; 85025; 87086; 99282-25